=== PATIENT | female | born 1960 | race Caucasian/White ===

== ENCOUNTER 2020-09-06 11:34 | Inpatient (IN) | payer MEDICARE, OTHER ==
[~2020-09-06] VITALS: Ht 172.7 cm; Wt 113.4 kg
[2020-09-06 12:32] LABS: HEMOGLOBIN 15.9 gm/dl (12.3-15.3); RED BLOOD COUNT 4.91 M/UL (4.00-5.10)
[2020-09-06] MEDS ORDERED: ALLOPURINOL100 MG PO (14:17)
[2020-09-06] MEDS ORDERED: PLAVIX 75 MG TA75 MG PO (14:17)
[2020-09-06] MEDS ORDERED: LASIX20 MG PO (14:18)
[2020-09-06] MEDS ORDERED: ISOSORBIDE MONO60 MG PO (14:18)
[2020-09-06] MEDS ORDERED: MS CONTIN TAB S30 MG PO (14:19)
[2020-09-06] MEDS ORDERED: PERCOCET 10-321 EACH PO (14:19)
[2020-09-06] MEDS ORDERED: ZANAFLEX4 MG PO (14:20)
[2020-09-06] MEDS ORDERED: ALDACTONE 25MG25 MG PO (14:20)
[2020-09-06] MEDS ORDERED: VITAMIN D21250 MCG PO (14:21)
[2020-09-06] MEDS ORDERED: BENTYL 10MG CAP10 MG PO (14:21)
[2020-09-06] MEDS ORDERED: LINZESS145 MCG PO (14:50)
[2020-09-06] MEDS ORDERED: COREG 25MG TAB25 MG PO (14:51)
[2020-09-06] MEDS ORDERED: ASPIRIN EC81 MG PO (14:51)
[2020-09-06] MEDS ORDERED: TRESIBA FL100 UNIT/1 SQ (14:52)
[2020-09-06] MEDS ORDERED: NOVOLOG 10100 UNITS1 SC (14:52)
[2020-09-07 06:56] LABS: HEMOGLOBIN 8.5 gm/dl (12.3-15.3); RED BLOOD COUNT 2.66 M/UL (4.00-5.10); WHITE BLOOD COUNT 16.9 K/UL (4.5-11.0)
[2020-09-07 16:19] LABS: HEMOGLOBIN 8.9 gm/dl (12.3-15.3); RED BLOOD COUNT 2.87 M/UL (4.00-5.10)
[2020-09-07 16:42] LABS: WHITE BLOOD COUNT 23.2 K/UL (4.5-11.0)
[2020-09-08 01:10] LABS: HEMOGLOBIN 8.5 gm/dl (12.3-15.3); RED BLOOD COUNT 2.74 M/UL (4.00-5.10); WHITE BLOOD COUNT 27.6 K/UL (4.5-11.0)
[2020-09-08 04:58] LABS: BUN/CREATININE RATIO 21 (0-10)
[2020-09-08 09:25] LABS: HEMOGLOBIN 8.5 gm/dl (12.3-15.3); RED BLOOD COUNT 2.73 M/UL (4.00-5.10); WHITE BLOOD COUNT 26.7 K/UL (4.5-11.0)
[2020-09-08 17:00] LABS: HEMOGLOBIN 9.4 gm/dl (12.3-15.3)
[2020-09-08 17:08] LABS: WHITE BLOOD COUNT 34.1 K/UL (4.5-11.0)
[2020-09-09 02:02] LABS: HEMOGLOBIN 8.5 gm/dl (12.3-15.3); RED BLOOD COUNT 2.79 M/UL (4.00-5.10)
[2020-09-09 02:09] LABS: WHITE BLOOD COUNT 32.9 K/UL (4.5-11.0)
[2020-09-09 09:26] LABS: HEMOGLOBIN 8.4 gm/dl (12.3-15.3); RED BLOOD COUNT 2.7 M/UL (4.00-5.10)
[2020-09-09 09:29] LABS: WHITE BLOOD COUNT 33.1 K/UL (4.5-11.0)
[2020-09-10 00:03] LABS: HEMOGLOBIN 7.5 gm/dl (12.3-15.3); RED BLOOD COUNT 2.55 M/UL (4.00-5.10)
[2020-09-10 00:06] LABS: WHITE BLOOD COUNT 39.8 K/UL (4.5-11.0)
[2020-09-10 01:37] LABS: HEMOGLOBIN 7.5 gm/dl (12.3-15.3); RED BLOOD COUNT 2.49 M/UL (4.00-5.10)
[2020-09-10 02:26] LABS: WHITE BLOOD COUNT 42.5 K/UL (4.5-11.0)
[2020-09-10 14:30] LABS: HEMOGLOBIN 7.1 gm/dl (12.3-15.3); RED BLOOD COUNT 2.38 M/UL (4.00-5.10)
[2020-09-10 14:41] LABS: WHITE BLOOD COUNT 37.7 K/UL (4.5-11.0)
--- NOTE | 2020-09-10 21:20 | NUR ---
CONTACTED PT FAMILY, SPOKE WITH CHANTELL AND EXPLAINED PT CONDITION HAS DECLINED AND PER POLICY PER HOUSESUPERVISOR FAMILY COULD COME SEE PT LONG THEY WORE MASKS IN THE ROOM. EXPLAINED CONDITION TO , STATED, "AHH WE WILL MAKE A DECISION SATURDAY I MAY COME UP TOMORROW (SATURDAY) I DON'T KNOW"
[2020-09-10 23:20] LABS: HEMOGLOBIN 7.1 gm/dl (12.3-15.3)
--- NOTE | 2020-09-11 01:54 | NUR ---
CONTACTED HOSPITALIST TO UPDATE ON PATIENT CONDITION.
[2020-09-11 03:34] LABS: RED BLOOD COUNT 2.33 M/UL (4.00-5.10)
[2020-09-11 03:41] LABS: HEMOGLOBIN 6.8 gm/dl (12.3-15.3); WHITE BLOOD COUNT 30.7 K/UL (4.5-11.0)
[2020-09-11 04:19] LABS: BUN/CREATININE RATIO 13 (0-10)
== END 2020-09-11 03:21 | disposition expired | DRG 870 ==
LOC: ER1 11:34 → 2 EAST 14:10 → CDU 14:10 → 2 EAST 15:27
PROVIDERS: Emergency Medicine; Internal Medicine; Internal Medicine Pulmonary Disease; ADMIT Family Medicine
PROC: 5A1955Z Respiratory Ventilation, Greater than 96 Consecutive Hours (ICD-10-PCS; principal; 2020-09-06)
PROC: 0BH17EZ Insertion of Endotracheal Airway into Trachea, Via Natural or Artificial Opening (ICD-10-PCS; 2020-09-06)
PROC: 8E0ZXY6 Isolation (ICD-10-PCS; 2020-09-06)
PROC: 30233N1 Transfusion of Nonautologous Red Blood Cells into Peripheral Vein, Percutaneous Approach (ICD-10-PCS; 2020-09-07)
PROC: 30233K1 Transfusion of Nonautologous Frozen Plasma into Peripheral Vein, Percutaneous Approach (ICD-10-PCS; 2020-09-07)
PROC: XW13325 Transfusion of Convalescent Plasma (Nonautologous) into Peripheral Vein, Percutaneous Approach, New Technology Group 5 (ICD-10-PCS; 2020-09-07)
PROC: B24BZZZ Ultrasonography of Heart with Aorta (ICD-10-PCS; 2020-09-07)
PROC: 04HY32Z Insertion of Monitoring Device into Lower Artery, Percutaneous Approach (ICD-10-PCS; 2020-09-07)
PROC: 4A133B1 Monitoring of Arterial Pressure, Peripheral, Percutaneous Approach (ICD-10-PCS; 2020-09-07)
PROC: 4A133J1 Monitoring of Arterial Pulse, Peripheral, Percutaneous Approach (ICD-10-PCS; 2020-09-07)
PROC: 05HN33Z Insertion of Infusion Device into Left Internal Jugular Vein, Percutaneous Approach (ICD-10-PCS; 2020-09-07)
PROC: B544ZZA Ultrasonography of Left Jugular Veins, Guidance (ICD-10-PCS; 2020-09-07)
PROC: XW033E5 Introduction of Remdesivir Anti-infective into Peripheral Vein, Percutaneous Approach, New Technology Group 5 (ICD-10-PCS; 2020-09-07)
PROC: 30233K1 Transfusion of Nonautologous Frozen Plasma into Peripheral Vein, Percutaneous Approach (ICD-10-PCS; 2020-09-09)
PROC: 30233K1 Transfusion of Nonautologous Frozen Plasma into Peripheral Vein, Percutaneous Approach (ICD-10-PCS; 2020-09-10)
PROC: 30233N1 Transfusion of Nonautologous Red Blood Cells into Peripheral Vein, Percutaneous Approach (ICD-10-PCS; 2020-09-10)
PROC: 3E043XZ Introduction of Vasopressor into Central Vein, Percutaneous Approach (ICD-10-PCS; 2020-09-10)
DX: A41.89 Other specified sepsis (principal); E11.10 Type 2 diabetes mellitus with ketoacidosis without coma; U07.1 COVID-19; R65.21 Severe sepsis with septic shock; J12.82 Pneumonia due to coronavirus disease 2019; J15.212 Pneumonia due to Methicillin resistant Staphylococcus aureus; G93.41 Metabolic encephalopathy; K72.00 Acute and subacute hepatic failure without coma; J80 Acute respiratory distress syndrome; D65 Disseminated intravascular coagulation [defibrination syndrome]; N17.0 Acute kidney failure with tubular necrosis; I21.A1 Myocardial infarction type 2; M62.82 Rhabdomyolysis; K92.2 Gastrointestinal hemorrhage, unspecified; E87.1 Hypo-osmolality and hyponatremia; E87.4 Mixed disorder of acid-base balance; D62 Acute posthemorrhagic anemia; K55.9 Vascular disorder of intestine, unspecified; I47.1 Supraventricular tachycardia; E83.51 Hypocalcemia; E87.6 Hypokalemia; D69.6 Thrombocytopenia, unspecified; E83.42 Hypomagnesemia; R57.0 Cardiogenic shock; E66.01 Morbid (severe) obesity due to excess calories; E11.65 Type 2 diabetes mellitus with hyperglycemia; G89.29 Other chronic pain; E88.09 Other disorders of plasma-protein metabolism, not elsewhere classified; E80.6 Other disorders of bilirubin metabolism; F11.90 Opioid use, unspecified, uncomplicated; I12.9 Hypertensive chronic kidney disease with stage 1 through stage 4 chronic kidney disease, or unspecified chronic kidney disease; E11.22 Type 2 diabetes mellitus with diabetic chronic kidney disease; N18.9 Chronic kidney disease, unspecified; Z90.49 Acquired absence of other specified parts of digestive tract; Z90.710 Acquired absence of both cervix and uterus; Z79.02 Long term (current) use of antithrombotics/antiplatelets; Z79.82 Long term (current) use of aspirin; Z79.4 Long term (current) use of insulin; Z79.899 Other long term (current) drug therapy; Z91.19 Patient's noncompliance with other medical treatment and regimen; Z68.38 Body mass index [BMI] 38.0-38.9, adult
CPT/HCPCS: ECHO; 31500; 36415; 36430; 36600; 71045; 80048; 80053; 80061; 80307; 82009; 82140; 82550; 82553; 82728; 82803; 82962; 83036; 83605; 83690; 83735; 83874; 83880; 84100; 84484; 85007; 85014; 85018; 85025; 85027; 85379; 85610; 85730; 86140; 86850; 86900; 86901; 86920; 86927; 87040; 87070; 87077; 87186; 87205; 93005; 93306; 94002; 94003; 94640; 94660; 94664; 94760; 99285; C9113; J0610; J0696; J1100; J1644; J2020; J2060; J2185; J2250; J2370; J2543; J2704; J3370; J3475; J7030; J7040; J7070; P9016; P9017; P9045; U0002